=== PATIENT | male | born 1960 | race Caucasian/White ===

== ENCOUNTER → 2017-01-13 | Day surgery (SDC) | payer OTHER ==
[~2017-01-13] VITALS: Ht 180.3 cm; Wt 95.0 kg
[~2017-01-13] MED LIST: 0.9% Sodium Chloride 1,000 ML IV SCH; ASCO-294 PO; ASPI-973 PO; FINA1TAB17 PO; LIP40 PO; MULT-1018 PO; NIAC500T21 PO; OMEG500C PO; Sodium Chloride LOK Flush 10 mL Syringe IV PRN; fentaNYL-PF 50 mCg/mL 2 mL Inj IVPUSH PRN
[2017-01-13 07:41] VITALS: BP 133/86; PULSE 52; RESP 16; O2SAT 97
[2017-01-13 08:27] VITALS: BP 120/84; PULSE 55; RESP 12; O2SAT 97
[2017-01-13 08:42] VITALS: BP 106/73; PULSE 53; RESP 12; O2SAT 95
[2017-01-13 08:45] VITALS: BP 120/87; PULSE 57; RESP 12; O2SAT 97
--- NOTE | 2017-01-13 11:48 | ENDO ---
[address] [address] ENDOSCOPY PROCEDURE PATIENT: CESAR COREAS : 1960 MR#: [id number] ADMIT: 01/13/2017 JOB ID: [id number] DATE: 01/13/2017 PRIMARY PROVIDER: JAIRO Graf PROCEDURE: Colonoscopy. INDICATIONS: A 56-year-old male who reports for colon cancer screening. EQUIPMENT: PCF-H180AL SEDATION: 1. Versed 5 mg. 2. Fentanyl 100 mcg. COMPLICATIONS: None identified. BOWEL PREPARATION: Fair, adequate exam. PROCEDURE INFO: After the risks and benefits were explained, written and verbal informed consent was obtained. The patient was brought into the endoscopy suite and placed into the left lateral decubitus position. Sedation was achieved as above. A digital rectal examination accomplished. No significant pathology appreciated apart from some mild internal hemorrhoids. The scope was introduced into the rectum and advanced to the cecum as identified by the appendiceal orifice and ileocecal valve. The scope was slowly withdrawn to carefully examine the mucosa for any defects or lesions. Multiple direct views were made through the dentate line for exclusion of pathology. The colon was decompressed. The scope was removed from the patient who tolerated the procedure well. FINDINGS: No significant polyps, mass lesions, or inflammatory features identified throughout. ENDOSCOPIC DIAGNOSES: Visually unremarkable colonoscopy to cecum. RECOMMENDATIONS: Repeat colonoscopy in 10 years' time, sooner should symptoms warrant an earlier exam.
== END | disposition home or self-care (01) ==
LOC: END 00:03
PROVIDERS: ATTEND Internal Medicine Gastroenterology
DX: Z12.11 Encounter for screening for malignant neoplasm of colon (principal); Z79.82 Long term (current) use of aspirin; Z79.899 Other long term (current) drug therapy
CPT/HCPCS: 45378; 99153; G0500; J2250; J3010; J7030